=== PATIENT | male | born 1980 ===

== ENCOUNTER 2023-01-10 20:00 | Outpatient (CLI) | payer BC, SELFPAY | END 2023-01-10 20:01 | disposition home or self-care (01) | LOC: SLEEP 01-11 05:09 | PROVIDERS: Family Provider Family Medicine; Visit Provider Internal Medicine | DX: G47.30 Sleep apnea, unspecified (principal); R06.83 Snoring; E66.9 Obesity, unspecified; Z68.42 Body mass index [BMI] 45.0-49.9, adult | CPT/HCPCS: 95810 ==